=== PATIENT | female | born 1980 | race Caucasian/White ===

== ENCOUNTER 2018-05-27 08:34 | Emergency (ER) | payer BC ==
[~2018-05-27] VITALS: Ht 160 cm; Wt 72.6 kg
[2018-05-27 08:39] VITALS: BP_SYST 114
[2018-05-27] MEDS ORDERED: KETOROLAC TROMETHAMINE 60 MG/2 ML VIAL IM ONE (09:15)
[2018-05-27] MEDS ORDERED: PROCHLORPERAZINE EDISYLATE 10 MG/2 ML VIAL IM ONE (09:15)
[2018-05-27 11:56] VITALS: BP_SYST 102
== END 2018-05-27 11:56 | disposition home or self-care (01) ==
LOC: SED 08:34
DX: M43.6 Torticollis (principal)
CPT/HCPCS: 72040; 81025; 96372; 99284; J0780; J1885